=== PATIENT | female | born 1955 | race Caucasian/White ===

== ENCOUNTER → 2016-11-01 | Outpatient (CLI) | payer OTHER ==
[~2016-11-01] MED LIST: ABIL5TAB6 PO; ADDE30TA PO; DULO20 PO; METHO500 PO; PERC5TAB12 PO; VALI10TA PO
== END ==
LOC: CLAB 14:42
PROVIDERS: ATTEND Obstetrics & Gynecology
DX: R30.0 Dysuria (principal); B96.1 Klebsiella pneumoniae [K. pneumoniae] as the cause of diseases classified elsewhere
CPT/HCPCS: 87077; 87086; 87186